=== PATIENT | male | born 1990 | race American Indian/Alaskan Native ===

== ENCOUNTER 2018-03-29 20:59 | Emergency (ER) | payer SELFPAY ==
--- NOTE | 2018-03-29 21:14 | Emergency Department Report ---
Blank Doc - Documentation Documentation: 27 y.o. male presents to ED s/p seizure around 1700 today. Normally only have them during sleep. Woke up with mouth sore and a bad headache. This is usual during each episode. PMH seizures cc mouth sore, worse on left side and with eating PlaN: Fast track side for evaluation
[2018-03-29] MEDS ORDERED: REGLAN IV ONE (22:01)
[2018-03-29] MEDS ORDERED: KEPPRA 1,000 MG/NS 0.75% 100ML 1,000 MG/100 ML BAG IV ONE (22:01)
[2018-03-29] MEDS ORDERED: MAGNESIUM SULFATE 2GM/50ML 2 GM/50 ML BAG IV ONE (22:01)
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
[2018-03-29 22:42] LABS: Hematocrit 41.8 % (35.5-45.6); Hemoglobin 14.3 gm/dl (11.8-15.2); Mean Corpuscular HGB Conc 34 % (32-34); Mean Corpuscular Volume 83 fl (84-94); Platelet Count 238 K/mm3 (140-440); Red Blood Count 5.06 M/mm3 (3.65-5.03); Red Cell Distribution Width 13.6 % (13.2-15.2)
--- NOTE | 2018-03-29 22:55 | Cat Scan Report ---
FINAL REPORT EXAM: CT HEAD/BRAIN WO CON HISTORY: Seizure/headache TECHNIQUE: CT evaluation was performed of the head without the use of intravenous contrast administr ation. PRIORS: None. FINDINGS: Normal density, size and configuration of the brain parenchyma and CSF containing spaces. No evidence of acute hemorrhage. no mass effect, edema or shift of midline structures. Visualized paranasal sinu ses are clear. No pathologic fluid collection. Calvarium is normal. IMPRESSION: No CT evidence of acute intracranial process. COMMENT: If first time seizure, consider MRI for further evaluation.
[2018-03-29 22:57] LABS: BUN/Creatinine Ratio 7; Blood Urea Nitrogen 6 mg/dL (9-20); Calcium 8.8 mg/dL (8.4-10.2); Hemolysis Index 20
[2018-03-29] MEDS ORDERED: TORADOL IV ONE (23:02)
[2018-03-30 00:18] VITALS: BP 108/58
== END 2018-03-30 00:19 | disposition home or self-care (01) ==
LOC: ED 20:59
DX: G40.909 Epilepsy, unspecified, not intractable, without status epilepticus (principal); G43.909 Migraine, unspecified, not intractable, without status migrainosus
CPT/HCPCS: 36415; 70450; 80048; 82550; 83735; 85027; 96365; 96367; 96375; 99284; J1885; J1953; J2765; J3475

== ENCOUNTER 2019-11-07 09:10 | Emergency (ER) | payer MEDICAID ==
[2019-11-07 09:31] VITALS: BP 113/67
[2019-11-07] MEDS ORDERED: levETIRAcetam 1000 MG/NS 0.75% 1,000 MG/100 ML BAG IV ONE (09:32)
[2019-11-07] MEDS ORDERED: KETOROLAC 30 MG/1 ML INJ IV ONE (09:43)
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
[2019-11-07 10:03] LABS: Basophils # (Auto) 0.1 K/mm3 (0.0-0.1); Basophils % (Auto) 0.7 % (0.0-1.8); Eosinophils % (Auto) 0.4 % (0.0-4.3); Hematocrit 44.3 % (35.5-45.6); Hemoglobin 15.4 gm/dl (11.8-15.2); Lymphocytes # (Auto) 1.5 K/mm3 (1.2-5.4); Lymphocytes % (Auto) 20.2 % (13.4-35.0); Mean Corpuscular HGB Conc 35 % (32-34); Mean Corpuscular Volume 84 fl (84-94); Monocytes # (Auto) 0.6 K/mm3 (0.0-0.8); Monocytes % (Auto) 7.9 % (0.0-7.3); Platelet Count 233 K/mm3 (140-440)
[2019-11-07 10:17] LABS: BUN/Creatinine Ratio 8; Blood Urea Nitrogen 7 mg/dL (9-20); Calcium 9.4 mg/dL (8.4-10.2); Hemolysis Index 14
[2019-11-07 10:19] LABS: BUN/Creatinine Ratio 8; Blood Urea Nitrogen 7 mg/dL (9-20); Calcium 9.2 mg/dL (8.4-10.2); Hemolysis Index 11
== END 2019-11-07 14:12 | disposition home or self-care (01) ==
LOC: ED 09:10
DX: R56.9 Unspecified convulsions (principal); G43.909 Migraine, unspecified, not intractable, without status migrainosus; F90.8 Attention-deficit hyperactivity disorder, other type; F17.200 Nicotine dependence, unspecified, uncomplicated; Z79.899 Other long term (current) drug therapy
CPT/HCPCS: 36415; 80048; 82962; 83735; 85025; 96374; 96375; 99284; J1885; J1953; 96365

== ENCOUNTER 2020-01-19 15:18 | Emergency (ER) | payer MEDICAID ==
[2020-01-19] MEDS ORDERED: levETIRAcetam 1000 MG/NS 0.75% 1,000 MG/100 ML BAG IV ONE (15:32)
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
[2020-01-19] MEDS ORDERED: IBUPROFEN 800 MG TAB PO ONE (18:44)
[2020-01-19] MEDS ORDERED: oxyCODONE /ACETAMINOPHEN 5-325MG TAB PO ONE (18:44)
[2020-01-19] MEDS ORDERED: ONDANSETRON 4 MG ODT TAB PO ONE (18:44)
[2020-01-19 19:21] VITALS: BP 122/76
== END 2020-01-19 18:55 | disposition home or self-care (01) ==
LOC: ED 15:18
DX: G40.909 Epilepsy, unspecified, not intractable, without status epilepticus (principal); G43.909 Migraine, unspecified, not intractable, without status migrainosus; F17.200 Nicotine dependence, unspecified, uncomplicated; Z98.890 Other specified postprocedural states; Z79.899 Other long term (current) drug therapy
CPT/HCPCS: 96365; 99284; J1953; Q0162

== ENCOUNTER 2020-01-28 12:24 | Emergency (ER) | payer MEDICAID ==
[2020-01-28] MEDS ORDERED: levETIRAcetam 1000 MG/NS 0.75% 1,000 MG/100 ML BAG IV ONE ×2 (13:15)
[2020-01-28] MEDS ORDERED: ONDANSETRON 4 MG/2 ML INJ IV ONE (13:28)
[2020-01-28] MEDS ORDERED: MORPHINE 4 MG/1 ML INJ IV ONE (13:28)
[2020-01-28] MEDS ORDERED: KETOROLAC 30 MG/1 ML INJ IV ONE (13:28)
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
[2020-01-28 13:54] LABS: Basophils # (Auto) 0.1 K/mm3 (0.0-0.1); Basophils % (Auto) 1.6 % (0.0-1.8); Eosinophils # (Auto) 0.1 K/mm3 (0.0-0.4); Eosinophils % (Auto) 1.4 % (0.0-4.3); Hematocrit 49.9 % (35.5-45.6); Hemoglobin 16.7 gm/dl (11.8-15.2); Lymphocytes # (Auto) 1.8 K/mm3 (1.2-5.4); Lymphocytes % (Auto) 41.1 % (13.4-35.0); Mean Corpuscular HGB Conc 34 % (32-34); Mean Corpuscular Volume 86 fl (84-94); Monocytes # (Auto) 0.4 K/mm3 (0.0-0.8); Monocytes % (Auto) 8.1 % (0.0-7.3); Platelet Count 230 K/mm3 (140-440); Red Blood Count 5.81 M/mm3 (3.65-5.03); Red Cell Distribution Width 14.4 % (13.2-15.2)
[2020-01-28 14:02] LABS: BUN/Creatinine Ratio 12; Blood Urea Nitrogen 12 mg/dL (9-20); Hemolysis Index 15
--- NOTE | 2020-01-28 14:17 | XRay Report ---
LEFT HAND 3 VIEW(S) INDICATION / CLINICAL INFORMATION: hand pain s/p seizure COMPARISON: None available. FINDINGS: BONES / JOINT(S): No acute fracture or subluxation. No significant arthritis. SOFT TISSUES: No significant abnormality. ADDITIONAL FINDINGS: None. Signer Name: Nicko Mathias MD Signed: 01/28/2020 2:12 PM Workstation Name: [id number]
--- NOTE | 2020-01-28 15:19 | Cat Scan Report ---
CT head/brain wo con INDICATION / CLINICAL INFORMATION: 29 years Male; left sided king x 3 days, seizure. TECHNIQUE: Routine CT head without contrast. All CT scans at this location are performed using CT dos e reduction for ALARA by means of automated exposure control. COMPARISON: 03/29/2018 FINDINGS: BRAIN / INTRACRANIAL CONTENTS: No acute hemorrhage, mass effect, midline shift, hydrocephalus, or acu te, large territorial infarct. No signs of significant atrophy or chronic infarct. No significant whi te matter abnormality seen. CRANIOCERVICAL JUNCTION: Tonsillar ectopia seen without mass effect on the cervicomedullary junction. ORBITS: No significant abnormality of visualized orbits. SINUSES / MASTOIDS: No significant abnormality in the visualized paranasal sinuses or mastoid air neeraj ls. ADDITIONAL FINDINGS: None. IMPRESSION: 1. No focal mass, hemorrhage, hydrocephalus, or acute, large territorial infarct. Signer Name: Rahul Guo MD, III Signed: 01/28/2020 3:14 PM Workstation Name: [email or web address]
[2020-01-28 17:44] VITALS: BP 126/81
== END 2020-01-28 17:44 | disposition home or self-care (01) ==
LOC: ED 12:24
DX: S60.222A Contusion of left hand, initial encounter (principal); R56.9 Unspecified convulsions; R51.9 Headache, unspecified; F17.200 Nicotine dependence, unspecified, uncomplicated; Z98.890 Other specified postprocedural states; Z79.1 Long term (current) use of non-steroidal anti-inflammatories (NSAID); Z79.899 Other long term (current) drug therapy; X58.XXXA Exposure to other specified factors, initial encounter; Y93.89 Activity, other specified; Y92.89 Other specified places as the place of occurrence of the external cause; Y99.8 Other external cause status
CPT/HCPCS: 36415; 70450; 73130; 80048; 83735; 85025; 96374; 96375; 99285; J1885; J1953; J2270; J2405

== ENCOUNTER 2020-02-25 20:43 | Emergency (ER) | payer MEDICAID ==
[2020-02-25 21:03] VITALS: BP 104/74
[2020-02-25] MEDS ORDERED: ONDANSETRON 4 MG ODT TAB PO ONE (22:15)
[2020-02-25] MEDS ORDERED: HYDROcodone/ACETAMINOPHEN 7.5-325MG TAB PO ONE (22:15)
[2020-02-25] MEDS ORDERED: IBUPROFEN 600 MG TAB PO ONE (22:15)
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
--- NOTE | 2020-02-26 01:53 | XRay Report ---
XR chest 1V ap INDICATION / CLINICAL INFORMATION: cough COMPARISON: None available. FINDINGS: SUPPORT DEVICES: None. HEART / MEDIASTINUM: No significant abnormality. LUNGS / PLEURA: Lungs are clear. Costophrenic sulci are sharp. No pneumothorax. ADDITIONAL FINDINGS: No significant additional findings. IMPRESSION: 1. No acute findings. Signer Name: Tesfaye Gonzalez MD Signed: 02/26/2020 1:49 AM Workstation Name: [id number]
== END 2020-02-26 01:11 | disposition home or self-care (01) ==
LOC: ED 20:43
DX: R05 Cough (principal); R06.02 Shortness of breath; R50.9 Fever, unspecified; Z20.828 Contact with and (suspected) exposure to other viral communicable diseases; G43.909 Migraine, unspecified, not intractable, without status migrainosus; R56.9 Unspecified convulsions; F17.200 Nicotine dependence, unspecified, uncomplicated; F12.10 Cannabis abuse, uncomplicated; Z98.890 Other specified postprocedural states; Z79.1 Long term (current) use of non-steroidal anti-inflammatories (NSAID); Z79.899 Other long term (current) drug therapy
CPT/HCPCS: 71045; 93005

== ENCOUNTER 2020-05-14 12:10 | Emergency (ER) | payer MEDICAID ==
[2020-05-14] MEDS ORDERED: levETIRAcetam 1000 MG/NS 0.75% 1,000 MG/100 ML BAG IV ONE (12:41)
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
[2020-05-14 13:33] LABS: Basophils % (Auto) 0.5 % (0.0-1.8); Eosinophils # (Auto) 0.1 K/mm3 (0.0-0.4); Eosinophils % (Auto) 1.4 % (0.0-4.3); Hematocrit 45.9 % (35.5-45.6); Hemoglobin 15.5 gm/dl (11.8-15.2); Lymphocytes # (Auto) 1.7 K/mm3 (1.2-5.4); Lymphocytes % (Auto) 39.2 % (13.4-35.0); Mean Corpuscular HGB Conc 34 % (32-34); Mean Corpuscular Volume 85 fl (84-94); Monocytes # (Auto) 0.4 K/mm3 (0.0-0.8); Monocytes % (Auto) 9.5 % (0.0-7.3); Platelet Count 231 K/mm3 (140-440); Red Blood Count 5.42 M/mm3 (3.65-5.03)
[2020-05-14 13:49] LABS: BUN/Creatinine Ratio 6; Blood Urea Nitrogen 6 mg/dL (9-20); Calcium 8.9 mg/dL (8.4-10.2); Hemolysis Index 6
[2020-05-14 16:20] VITALS: BP 121/71
--- NOTE | 2020-05-16 11:10 | Electrocardiograph Report ---
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
== END 2020-05-14 16:19 | disposition home or self-care (01) ==
LOC: ED 12:10
DX: G40.909 Epilepsy, unspecified, not intractable, without status epilepticus (principal); G43.909 Migraine, unspecified, not intractable, without status migrainosus; F17.200 Nicotine dependence, unspecified, uncomplicated; Z79.899 Other long term (current) drug therapy
CPT/HCPCS: 36415; 80048; 85025; 93005; 96374; 99283; J1953

== ENCOUNTER 2020-07-24 19:21 | Emergency (ER) | payer MEDICAID ==
[2020-07-24] MEDS ORDERED: LORazepam 2 MG/ML VIAL IV ONE (19:33)
[2020-07-24] MEDS ORDERED: LORazepam 2 MG/ML VIAL ONE (19:34)
[2020-07-24] MEDS ORDERED: levETIRAcetam 1,000 MG in DEXTROSE 5% IN WATER 100 ML IV ONE (19:39)
[2020-07-24] MEDS ORDERED: levETIRAcetam 1000 MG/NS 0.75% 1,000 MG/100 ML BAG IV ONE (20:00)
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
[2020-07-24 22:12] VITALS: BP 114/69
== END 2020-07-24 23:30 | disposition home or self-care (01) ==
LOC: ED 19:21
DX: R56.9 Unspecified convulsions (principal); G43.909 Migraine, unspecified, not intractable, without status migrainosus; Z98.890 Other specified postprocedural states; Z79.1 Long term (current) use of non-steroidal anti-inflammatories (NSAID); Z79.899 Other long term (current) drug therapy
CPT/HCPCS: 96374; 96375; 99283; J1953; J2060

== ENCOUNTER 2021-07-07 20:49 | Emergency (ER) | payer SELFPAY ==
[2021-07-07] MEDS ORDERED: ACETAMINOPHEN 325 MG TAB PO ONE (21:16)
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
[2021-07-07 21:46] LABS: Basophils # (Auto) 0.1 K/mm3 (0.0-0.1); Basophils % (Auto) 1.2 % (0.0-1.8); Eosinophils % (Auto) 0.6 % (0.0-4.3); Hematocrit 50.3 % (35.5-45.6); Hemoglobin 17.1 gm/dl (11.8-15.2); Lymphocytes # (Auto) 2.3 K/mm3 (1.2-5.4); Lymphocytes % (Auto) 36.6 % (13.4-35.0); Mean Corpuscular HGB Conc 34 % (32-34); Mean Corpuscular Volume 86 fl (84-94); Monocytes # (Auto) 0.4 K/mm3 (0.0-0.8); Monocytes % (Auto) 6.5 % (0.0-7.3); Platelet Count 245 K/mm3 (140-440); Red Blood Count 5.87 M/mm3 (3.65-5.03); Red Cell Distribution Width 14.5 % (13.2-15.2)
[2021-07-07] MEDS ORDERED: LORazepam 2 MG/ML VIAL IV ONE (21:55)
[2021-07-07] MEDS ORDERED: LORazepam 2 MG/ML VIAL ONE (21:56)
[2021-07-07] MEDS ORDERED: levETIRAcetam 1000 MG/NS 0.75% 1,000 MG/100 ML BAG IV ONE (21:59)
[2021-07-07 22:11] LABS: Alanine Aminotransferase 20 units/L (7-56); Albumin 4.3 g/dL (3.9-5); BUN/Creatinine Ratio 9; Blood Urea Nitrogen 10 mg/dL (9-20); Hemolysis Index 8
[2021-07-08 05:25] VITALS: BP 135/72
== END 2021-07-08 05:25 | disposition home or self-care (01) ==
LOC: ED 20:49
DX: R56.9 Unspecified convulsions (principal); G43.909 Migraine, unspecified, not intractable, without status migrainosus; F17.200 Nicotine dependence, unspecified, uncomplicated; Z98.890 Other specified postprocedural states; Z79.899 Other long term (current) drug therapy
CPT/HCPCS: 36415; 80053; 80177; 85025; 96374; 96375; 99284; J1953; J2060

== ENCOUNTER 2021-09-07 12:19 | Emergency (ER) | payer SELFPAY ==
[2021-09-07] MEDS ORDERED: levETIRAcetam 1000 MG/NS 0.75% 1,000 MG/100 ML BAG IV ONE (12:48)
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
[2021-09-07 13:37] LABS: Basophils % (Auto) 0.4 % (0.0-1.8); Eosinophils % (Auto) 0.2 % (0.0-4.3); Hematocrit 49.3 % (35.5-45.6); Hemoglobin 17.2 gm/dl (11.8-15.2); Lymphocytes # (Auto) 1.1 K/mm3 (1.2-5.4); Mean Corpuscular HGB Conc 35 % (32-34); Mean Corpuscular Volume 86 fl (84-94); Monocytes # (Auto) 0.4 K/mm3 (0.0-0.8); Monocytes % (Auto) 7.1 % (0.0-7.3); Platelet Count 221 K/mm3 (140-440); Red Blood Count 5.72 M/mm3 (3.65-5.03); Red Cell Distribution Width 14.7 % (13.2-15.2)
--- NOTE | 2021-09-07 14:12 | Cat Scan Report ---
CT head/brain wo con INDICATION: SEIZURE. TECHNIQUE: Routine CT head. All CT scans at this location are performed using CT dose reduction for A KANDICE by means of automated exposure control. COMPARISON: 01/28/2020 FINDINGS: Intracranial: Artis-white matter differentiation is maintained. No intracranial hemorrhage. No extra a xial collection. No hydrocephalus. No herniation. Sinuses: Paranasal sinuses and mastoid air cells are essentially clear. Orbits: Globes are intact. Calvarium: No acute fracture. IMPRESSION: 1. No acute intracranial abnormality. Signer Name: Tesfaye Gonzalez MD Signed: 09/07/2021 2:07 PM Workstation Name: [id number]
[2021-09-07 14:36] LABS: Alanine Aminotransferase 14 units/L (7-56); Albumin 4.5 g/dL (3.9-5); BUN/Creatinine Ratio 7; Blood Urea Nitrogen 8 mg/dL (9-20); Hemolysis Index 8
[2021-09-07] MEDS ORDERED: SODIUM CHLORIDE 0.9% 1000 ML 1,000 ML IV ONE (14:45)
[2021-09-07 14:47] LABS: Color,Urine Yellow (Yellow)
[2021-09-07 14:48] LABS: Bilirubin,Urine NEG (Negative); Blood,Urine MOD (Negative); Urobilinogen,Urine < 2.0 mg/dL (<2.0)
[2021-09-07 15:02] LABS: Amphetamine Screen,Urine Negative; Benzodiazepines Screen,Urine Negative; Cannabinoid Screen,Urine Negative; Cocaine Screen,Urine Negative; Methadone Screen,Urine Negative; Opiate Screen,Urine Negative
[2021-09-07 15:17] VITALS: BP 113/61
== END 2021-09-07 17:45 | disposition home or self-care (01) ==
LOC: ED 12:19
DX: R56.9 Unspecified convulsions (principal); Z91.14 Patient's other noncompliance with medication regimen; G43.909 Migraine, unspecified, not intractable, without status migrainosus; Z98.890 Other specified postprocedural states; F17.290 Nicotine dependence, other tobacco product, uncomplicated
CPT/HCPCS: 36415; 70450; 80053; 80307; 81001; 82140; 82550; 83735; 85025; 96361; 96374; 96375; 99284; J1953; J7030